=== PATIENT | male | born 1960 | race Caucasian/White ===

== ENCOUNTER 2016-12-20 11:06 | Emergency (ER) | payer SELFPAY ==
[~2016-12-20] VITALS: Ht 162.6 cm; Wt 57.0 kg
[2016-12-20 12:09] VITALS: BP 122/70
== END 2016-12-20 12:12 | disposition home or self-care (01) ==
LOC: ER 11:23
DX: R10.13 Epigastric pain (principal)
CPT/HCPCS: 99283

== ENCOUNTER 2018-09-12 15:10 | Emergency (ER) | payer SELFPAY ==
[~2018-09-12] VITALS: Ht 165.1 cm; Wt 70.0 kg
[2018-09-12 15:15] VITALS: BP 149/70
== END 2018-09-12 18:28 | disposition left against medical advice (07) ==
LOC: ER 15:10
DX: R10.9 Unspecified abdominal pain (principal); Z53.21 Procedure and treatment not carried out due to patient leaving prior to being seen by health care provider